=== PATIENT | male | born 1970 | race Caucasian/White ===

== ENCOUNTER → 2017-10-16 | Outpatient (CLI) | payer SELFPAY ==
--- NOTE | 2017-10-16 15:49 | CT ---
HISTORY: Family history of heart disease. Study: Cardiac calcium scoring. Technique: Multiple axial images of the chest were obtained on a [address] from the main pulmonary artery to the base of the heart. Noncontrast evaluation of the heart was performed fo r calcium scoring with prospective gating. Findings: A total calcium score of 0 is observed which is between the 0 and 25th percentile for males between the ages of 45 and 49. This score implies no identifiable plaque and very low, generally le ss than 5%, risk of coronary artery disease. Extracardiac findings: No pathologically enlarged lymphadenopathy can be observed. No significant pericardial effusion can be identified. The visualized portions of the lung parenchyma are unremarkable. No lytic or blastic lesions can be identified within the visualized bony thorax. IMPRESSION: Total coronary artery calcium score of 0. Reported By:
== END ==
LOC: RAD 08:36
PROVIDERS: ATTEND Family Medicine
DX: Z13.6 Encounter for screening for cardiovascular disorders (principal)